=== PATIENT | male | born 1975 | race Caucasian/White ===

== ENCOUNTER → 2016-06-18 | Outpatient (CLI) | payer BC | LOC: MW.CHPM 10:18 | PROVIDERS: ATTEND Anesthesiology | DX: Z51.81 Encounter for therapeutic drug level monitoring (principal); Z79.891 Long term (current) use of opiate analgesic | CPT/HCPCS: 80305 ==

== ENCOUNTER → 2016-07-16 | Outpatient (CLI) | payer BC | END | disposition home or self-care (01) | LOC: MW.CHPM 15:07 | PROVIDERS: ATTEND Anesthesiology | DX: Z51.81 Encounter for therapeutic drug level monitoring (principal); Z79.891 Long term (current) use of opiate analgesic | CPT/HCPCS: 80305 ==

== ENCOUNTER → 2016-09-04 | Outpatient (CLI) | payer BC | LOC: MW.CHPM 10:20 | PROVIDERS: ATTEND Anesthesiology | DX: Z51.81 Encounter for therapeutic drug level monitoring (principal); Z79.891 Long term (current) use of opiate analgesic | CPT/HCPCS: 80305 ==

== ENCOUNTER 2017-01-31 12:05 | Day surgery (SDC) | payer BC ==
[~2017-01-31 12:05] MED LIST: Betamethasone Acetate/Betamethasone Sod Phosphate 30 MG/5 ML MDV ONE; Iopamidol 408 MG/ML 50 ML SDV ONE; Lidocaine 2% 5 ML SDV ONE; Ropivacaine 0.5% 5 MG/ML 30 ML SDV ONE
--- NOTE | 2017-01-31 15:50 | OR ---
SURGEON: Vita Gonzales D.O. DATE OF PROCEDURE: 01/31/2017 OR STAFF PRESENT: 1. Jose Antonio Alexander RN. 2. Chapis Hawley RN. 3. Elizabeth Gross. RT. WOUND CLASSIFICATION: I. PREOPERATIVE DIAGNOSIS: Right sacroiliac joint arthropathy. POSTOPERATIVE DIAGNOSIS: Right sacroiliac joint arthropathy. PROCEDURES PERFORMED: 1. Right sacroiliac joint injection. 2. Fluoroscopic guidance for needle placement. 3. Local with oral Valium for sedation. SCREENING QUESTIONS: The patient answered "No" to all the followin. Are you allergic to iodine, Betadine or latex? 2. Do you have a bleeding disorder? 3. Do you have any joint replacements, heart valve replacements or a pacemaker? 4. Are you on any anti-inflammatories or blood thinners? 5. Do you have any current local or systemic infections? MEDICAL NECESSITY: This is a patient with a history of severe chronic low back pain and sacroiliac joint irritation with pain over the sacral sulcus and the buttocks region who comes in for the above diagnostic and therapeutic procedure. Please see medical necessity note attached. This procedure is being done in accordance with guidelines as written by the [employer] (SERAFIN). DESCRIPTION OF PROCEDURE: The patient had the procedure thoroughly explained including all possible risks, benefits and alternatives. Consent was signed in my clinic indicating understanding and willingness to proceed. The patient presented to the outpatient [facility] and was escorted to the dressing room to disrobe and change into a hospital gown. Preoperative vital signs were taken and stable. The patient reported that Valium was taken prior to the procedure. The patient was brought to the procedure room and placed in the prone position on the procedure room table. A pillow was placed under the hips in order to flatten the lumbar lordosis. The back was prepped with ChloraPrep and sterilely draped. All personnel in the operating room were dressed in appropriate attire including surgical scrubs, head and shoe covers. This was to ensure sterility while in the treatment room. During the time fluoroscopy was in use all personnel in the operating room wore lead forte with thyroid collars. Sterile technique was used during the procedure. The patient was awake and conversant throughout the procedure. The fluoroscope was positioned to provide an oblique view of the sacroiliac joint. There was no evidence of infection at the site of needle insertion. The skin was anesthetized with 2% Lidocaine with a sterile 27-gauge 1.5 inch needle. Then under fluoroscopy a 22-gauge 3.5 inch spinal needle was placed within the sacroiliac joint in the lower one-third of the joint. IsoVue-200 contrast dye was injected under live fluoroscopy and no intravascular flow pattern was observed. After negative aspiration of heme, the following solution was injected: 0.5% Ropivacaine, Celestone and 2% Lidocaine. The patient tolerated the procedure well and vital signs were stable during and after the procedure. The staff escorted the patient to the recovery area and the patient was released to home in stable condition after a brief stay in the recovery room monitored by the nurse. The patient was given both oral and written discharge and follow up instructions. Recommended follow up in two weeks. The patient is able to contact the office if there are any additional problems or questions in the meantime. The patient was given discharge instruction and verbalizes understanding including understanding of those signs and symptoms that would require emergency care. PREOPERATIVE PAIN: 9/10. POSTOPERATIVE PAIN: 0/10. PLAN: Followup in the Pain Clinic in 1 month. SAEED / KANNAN /[id number]
== END 2017-01-31 14:05 | disposition home or self-care (01) ==
LOC: MW.SDS 12:05
PROVIDERS: ATTEND Anesthesiology
DX: G89.4 Chronic pain syndrome (principal); M47.898 Other spondylosis, sacral and sacrococcygeal region; F41.9 Anxiety disorder, unspecified; M19.90 Unspecified osteoarthritis, unspecified site; Q76.2 Congenital spondylolisthesis; F32.9 Major depressive disorder, single episode, unspecified; K21.9 Gastro-esophageal reflux disease without esophagitis; M10.9 Gout, unspecified; I10 Essential (primary) hypertension; E78.00 Pure hypercholesterolemia, unspecified; G60.9 Hereditary and idiopathic neuropathy, unspecified; M51.16 Intervertebral disc disorders with radiculopathy, lumbar region; M48.061 Spinal stenosis, lumbar region without neurogenic claudication; G62.9 Polyneuropathy, unspecified; M06.9 Rheumatoid arthritis, unspecified; G47.30 Sleep apnea, unspecified; Z79.891 Long term (current) use of opiate analgesic; Z79.899 Other long term (current) drug therapy; Z88.5 Allergy status to narcotic agent; Z91.013 Allergy to seafood; Z91.040 Latex allergy status; Z98.890 Other specified postprocedural states
CPT/HCPCS: 27096; G0260; J0702; J2795; Q9966; 62323

== ENCOUNTER 2017-02-07 08:11 | Emergency (ER) | payer BC ==
[2017-02-07] MEDS ORDERED: Aspirin 81 MG Tab.Chew PO ONE (08:12)
[2017-02-07] MEDS ORDERED: Sodium Chloride 0.9% 1,000 ML IV ONE (08:12)
[2017-02-07] MEDS ORDERED: Pantoprazole 40 MG Vial IVPUSH ONE (08:12)
--- NOTE | 2017-02-07 08:14 | EDM.PDOC ---
ED HPI GENERAL MEDICAL PROBLEM - General Chief Complaint: Abdominal Pain Stated Complaint: CHEST PAIN Time Seen by Provider: 02/07/17 08:14 Source of Information: Reports: Patient - History of Present Illness INITIAL COMMENTS - FREE TEXT/NARRATIVE: HISTORY AND PHYSICAL: History of present illness: [Patient with GERD hypertension dyslipidemia presents with burning epigastric pain that began this morning he generally takes omeprazole for this there is no actual chest pain or radiation and arm neck or jaw there is no association with shortness of breath or diaphoresis He was seen by his primary care yesterday and diagnosed with a sinus infection he does have right-sided sinus tenderness greater than left and congestion mild intermittent cough secondary to postnasal drip He is on amoxicillin for above this was started yesterday No fever nausea vomiting chills sweats no shortness of breath headache dizziness or palpitation no bowel or urine symptoms ] Review of systems: As per history of present illness and below otherwise all systems reviewed and negative. Past medical history: As per history of present illness and as reviewed below otherwise noncontributory. Surgical history: As per history of present illness and as reviewed below otherwise noncontributory. Social history: No reported history of drug or alcohol abuse. Family history: As per history of present illness and as reviewed below otherwise noncontributory. Physical exam: HEENT: Atraumatic, normocephalic, pupils reactive, negative for conjunctival pallor or scleral icterus, mucous membranes moist, throat clear, neck supple, nontender, trachea midline. Lungs: Clear to auscultation, breath sounds equal bilaterally, chest nontender. Heart: S1S2, regular, negative for clicks, rubs, or JVD. Abdomen: Soft, nondistended, nontender. Negative for masses or hepatosplenomegaly. Negative for costovertebral tenderness. Pelvis: Stable nontender. Genitourinary: Deferred. Rectal: Deferred. Extremities: Atraumatic, negative for cords or calf pain. Neurovascular unremarkable. Neuro: Awake, alert, oriented. Cranial nerves II through XII unremarkable. Cerebellum unremarkable. Motor and sensory unremarkable throughout. Exam nonfocal. Diagnostics: [Lab as below EKG Chest 1 view ] Therapeutics: Aspirin 324 mg chewable Protonix ADEM L milligrams IV GI cocktail Symptoms resolved with above treatment []Continue amoxicillin as directed [id number] symptomatic therapies as discussed Continue omeprazole 40 mg daily Rolaids may benefit Zantac 150 mg by mouth twice a day for 2 weeks in addition Avoid triggers of acid reflux Impression: []gerd improved/resolved posttreatment above Chronic history of baseline Definitive disposition and diagnosis as appropriate pending reevaluation and review of above. - Related Data Allergies Allergy/AdvReac Type Severity Reaction Status Date / Time hydrocodone Allergy Shortness Verified 02/07/17 08:16 of Breath latex Allergy Cannot Verified 02/07/17 08:16 Remember bacteria in fish Allergy Cannot Uncoded 02/07/17 08:16 Remember Home Meds: Home Meds Celecoxib [CeleBREX] 200 mg PO DAILY 02/16/16 [History] Diclofenac Sodium [Voltaren 1% Gel] 1 applic TOP ASDIRECTED PRN 02/16/16 [ History] Folic Acid 1 mg PO DAILY 02/16/16 [History] Losartan Potassium [Cozaar] 100 mg PO DAILY 02/16/16 [History] Methocarbamol 750 mg PO TID 02/16/16 [History] Methotrexate 10 tab PO WEEKLY 02/16/16 [History] Nortriptyline HCl [Pamelor] 1 tab PO BEDTIME 02/16/16 [History] Omeprazole Magnesium [Prilosec Otc] 20 mg PO DAILY 02/16/16 [History] Pregabalin [Lyrica] 150 mg PO BID 02/16/16 [History] atorvaSTATin [Lipitor] 20 mg PO DAILY 02/16/16 [History] DULoxetine [Cymbalta] 1 cap PO BID 02/17/16 [History] Febuxostat [Uloric] ASDIRECTED 02/17/16 [History] Fluticasone Propionate [Flonase Allergy Relief] 1 spray NASBOTH ASDIRECTED 02/16 [History] Ketamine Soln ASDIRECTED 02/17/16 [History] Lidocaine/Prilocaine [Lidocaine-Prilocaine Cream] 1 dose TOP TID 02/17/16 [ History] Olopatadine HCl [Pataday] ASDIRECTED 02/17/16 [History] Verapamil HCl [Calan Sr] 1 tab PO DAILY 02/17/16 [History] oxyCODONE HCl/Acetaminophen [Percocet 7.5-325 mg Tablet] 1 tab PO ASDIRECTED [History] Past Medical History HEENT History: Reports: Allergic Rhinitis Other HEENT History: wears glasses Cardiovascular History: Reports: High Cholesterol, Hypertension Respiratory History: Reports: Sleep Apnea Other Respiratory History: uses CPAP Gastrointestinal History: Reports: GERD Genitourinary History: Reports: None Musculoskeletal History: Reports: Back Pain, Chronic, Gout, RA, Other (See Below ) Other Musculoskeletal History: spinal stenosis, congenital spondylosis Neurological History: Reports: Neuropathy, Peripheral, Other (See Below) Other Neuro History: degenerative disc disease Psychiatric History: Reports: None Endocrine/Metabolic History: Reports: Obesity/BMI 30+ Hematologic History: Reports: None Immunologic History: Reports: None Oncologic (Cancer) History: Reports: None Dermatologic History: Reports: None - Past Surgical History Musculoskeletal Surgical History: Reports: Arthroscopic Knee, Shoulder Surgery, Other (See Below) Social & Family History - Tobacco Use Smoking Status *Q: Never Smoker - Recreational Drug Use Recreational Drug Use: No Drug Use in Last 12 Months: No ED ROS GENERAL - Review of Systems Review Of Systems: ROS reveals no pertinent complaints other than HPI. ED EXAM, GENERAL - Physical Exam Exam: See Below Course - Vital Signs Last Recorded V/S: Last Vital Signs Temp 36.4 C 02/07/17 08:17 Pulse 78 02/07/17 08:17 Resp 24 H 02/07/17 08:17 BP 197/112 H 02/07/17 08:17 Pulse Ox 97 02/07/17 08:17 - Orders/Labs/Meds Orders: Active Orders 24 hr Category Date Time Status EKG Documentation Completion [RC] STAT Care 02/07/17 08:12 Active UA W/MICROSCOPIC [URIN] Stat Lab 02/07/17 08:12 Uncollected Labs: Laboratory Tests 02/07/17 02/07/17 Range/Units 08:16 08:16 WBC 8.55 (4.0-11.0) K/uL RBC 4.68 (4.50-5.90) M/uL Hgb 13.5 (13.0-17.0) g/dL Hct 40.6 (38.0-50.0) % MCV 86.8 (80.0-98.0) fL MCH 28.8 (27.0-32.0) pg MCHC 33.3 (31.0-37.0) g/dL RDW Std Deviation 45.1 (28.0-62.0) fl RDW Coeff of Lm 15 (11.0-15.0) % Plt Count 258 (150-400) K/uL MPV 8.80 (7.40-12.00) fL Neut % (Auto) 54.3 (48.0-80.0) % Lymph % (Auto) 30.9 (16.0-40.0) % Ripley % (Auto) 11.0 (0.0-15.0) % Eos % (Auto) 3.3 (0.0-7.0) % Baso % (Auto) 0.5 (0.0-1.5) % Neut # (Auto) 4.7 (1.4-5.7) K/uL Lymph # (Auto) 2.6 H (0.6-2.4) K/uL Ripley # (Auto) 0.9 H (0.0-0.8) K/uL Eos # (Auto) 0.3 (0.0-0.7) K/uL Baso # (Auto) 0.0 (0.0-0.1) K/uL Nucleated RBC % 0.0 /100WBC Nucleated RBCs # 0 K/uL Sodium 140 (136-146) mmol/L Potassium 3.7 (3.5-5.1) mmol/L Chloride 105 (98-110) mmol/L Carbon Dioxide 22 (21-31) mmol/L BUN 17 (6.0-23.0) mg/dL Creatinine 0.9 (0.6-1.5) mg/dL Est Cr Clr Drug Dosing 116.16 mL/min Estimated GFR (MDRD) > 60.0 ml/min Glucose 117 H (60-110) mg/dL Calcium 9.4 (8.8-10.8) mg/dL Total Bilirubin 0.3 (0.1-1.5) mg/dL AST 18 (5-40) IU/L ALT 33 (8-54) IU/L Alkaline Phosphatase 64 (40-150) Creatine Kinase 67 (9-236) IU/L CK-MB (CK-2) 0.5 (0-6.6) ng/ml Troponin I < 0.10 (0.0-0.29) NG/ML Total Protein 7.2 (6.0-8.0) g/dL Albumin 4.4 (3.5-5.0) g/dL Globulin 2.8 (2.0-3.5) g/dL Albumin/Globulin Ratio 1.6 (1.3-2.8) Amylase 34 (10-90) U/L Lipase 23 (7-80) U/L Meds: Medications Discontinued Medications Generic Name Dose Route Start Last Admin Trade Name [place] PRN Reason Stop Dose Admin Aspirin 324 mg 02/07/17 08:12 02/07/17 08:22 Aspirin PO 02/07/17 08:13 324 mg ONETIME ONE Administration Al Hydroxide/Mg Hydroxide 15 0 ml 02/07/17 08:21 02/07/17 08:33 ml/ Metoclopramide HCl 5 mg/ PO 02/07/17 08:22 20 each Lidocaine HCl 5 ml ONETIME ONE Administration Sodium Chloride 1,000 mls @ 999 mls/hr 02/07/17 08:12 02/07/17 08:25 Normal Saline IV 02/07/17 09:12 999 mls/hr STAT ONE Administration Pantoprazole Sodium 80 mg 02/07/17 08:12 02/07/17 08:25 Protonix Iv IVPUSH 02/07/17 08:13 80 mg .BOLUS ONE Administration Departure - Departure Time of Disposition: 09:14 Disposition: Home, Self-Care 01 Condition: Good Clinical Impression: GERD (gastroesophageal reflux disease) - Discharge Information Forms: ED Department Discharge Additional Instructions: Continue with omeprazole 40 mg daily Rolaids as needed may benefit Zantac 150 milligrams by mouth twice a day for 2 weeks is recommended Avoid triggers of acid reflux as discussed Follow-up with primary care in 2 weeks sooner as needed The following information is given to patients seen in the emergency department who are being discharged to home. This information is to outline your options for follow-up care. We provide all patients seen in our emergency department with a follow-up referral. The need for follow-up, as well as the timing and circumstances, are variable depending upon the specifics of your emergency department visit. If you don't have a primary care physician on staff, we will provide you with a referral. We always advise you to contact your personal physician following an emergency department visit to inform them of the circumstance of the visit and for follow-up with them and/or the need for any referrals to a consulting specialist. The emergency department will also refer you to a specialist when appropriate. This referral assures that you have the opportunity for follow-up care with a specialist. All of these measure are taken in an effort to provide you with optimal care, which includes your follow-up. Under all circumstances we always encourage you to contact your private physician who remains a resource for coordinating your care. When calling for follow-up care, please make the office aware that this follow-up is from your recent emergency room visit. If for any reason you are refused follow-up, please contact the [facility] emergency department at and asked to speak to the emergency department charge nurse. - My Orders Last 24 Hours: My Active Orders 02/07/17 08:12 EKG Documentation Completion [RC] STAT UA W/MICROSCOPIC [URIN] Stat - Assessment/Plan Last 24 Hours: My Active Orders 02/07/17 08:12 EKG Documentation Completion [RC] STAT UA W/MICROSCOPIC [URIN] Stat
[2017-02-07] MEDS ORDERED: Alum Hydrox/Mag Hydrox/Simeth 15 ML, Metoclopramide 5 MG, Lidocaine 2% 5 ML PO ONE ×3 (08:21)
--- NOTE | 2017-02-07 08:49 | CR ---
EXAMINATION: Portable chest radiograph. HISTORY: Pain. FINDINGS: Mild motion artifact is noted. The trachea is midline. The cardiomediastinal silhouette is within nor mal limits. No pulmonary infiltrates, effusions or pneumothorax. Osseous structures appear unremarkable. IMPRESSION: No acute cardiopulmonary process.
[2017-02-07 08:53] LABS: CHLORIDE,CL 105 mmol/L (98-110); SODIUM,NA 140 mmol/L (136-146)
[2017-02-07 09:36] VITALS: BP 178/92
== END 2017-02-07 09:32 | disposition home or self-care (01) ==
LOC: MW.ED 08:11
DX: K21.9 Gastro-esophageal reflux disease without esophagitis (principal); E78.00 Pure hypercholesterolemia, unspecified; I10 Essential (primary) hypertension; E66.9 Obesity, unspecified; Z88.5 Allergy status to narcotic agent; Z91.040 Latex allergy status; Z79.899 Other long term (current) drug therapy; Z68.32 Body mass index [BMI] 32.0-32.9, adult
CPT/HCPCS: 36415; 71010; 80053; 81001; 82150; 82550; 82553; 83690; 84484; 85025; 93005; 96361; 96374; 99284; A9270; C9113; J7040; 99283

== ENCOUNTER 2021-06-06 09:00 | Day surgery (SDC) | payer BC ==
[2021-06-06] MEDS ORDERED: Propofol 200 MG/20 ML SDV ONE (10:14)
[2021-06-06] MEDS ORDERED: fentaNYL 100 MCG/2 ML SDV ONE (10:36)
[2021-06-06] MEDS ORDERED: Ketamine 500 mg/10 ML MDV ONE (10:38)
[2021-06-06] MEDS ORDERED: Lactated Ringers 1,000 ML IV SCH (10:45)
[2021-06-06 12:08] VITALS: BP 152/89; PULSE 64
== END 2021-06-06 11:57 | disposition home or self-care (01) ==
LOC: MW.SDS 09:00
PROVIDERS: ATTEND Surgery
DX: R19.4 Change in bowel habit (principal); R63.4 Abnormal weight loss; R14.0 Abdominal distension (gaseous); F41.9 Anxiety disorder, unspecified; K21.9 Gastro-esophageal reflux disease without esophagitis; M10.9 Gout, unspecified; I10 Essential (primary) hypertension; E78.00 Pure hypercholesterolemia, unspecified; G60.9 Hereditary and idiopathic neuropathy, unspecified; G62.9 Polyneuropathy, unspecified; G47.30 Sleep apnea, unspecified; M06.9 Rheumatoid arthritis, unspecified; E66.9 Obesity, unspecified; Z88.5 Allergy status to narcotic agent; Z91.040 Latex allergy status; Z91.013 Allergy to seafood; Z98.890 Other specified postprocedural states
CPT/HCPCS: 00811; J2704; J3010; J3490; J7120

== ENCOUNTER 2024-01-30 22:07 | Emergency (ER) | payer BC ==
[2024-01-31 00:57] LABS: BASOPHILS ABSOLUTE AUTO 0.06 K/uL (0.00-0.20); BASOPHILS PERCENT AUTO 0.5 % (0.0-1.0); EOSINOPHILS ABSOLUTE AUTO 0.15 K/uL (0.00-0.45); EOSINOPHILS PERCENT AUTO 1.3 % (0.0-6.0); HEMATOCRIT 40.7 % (42.0-52.0); HEMOGLOBIN 13.4 g/dL (14.0-18.0); IMMATURE GRAN ABSOLUTE AUTO 0.05 K/uL (0.00-0.05); IMMATURE GRAN PERCENT AUTO 0.4 % (0.0-0.4); LYMPHOCYTES PERCENT AUTO 9.4 % (24.0-44.0); MEAN CORPUSCULAR HEMOGLOBIN 27.2 pg (28.0-32.0); MEAN CORPUSCULAR HGB CONC 32.9 g/dL (32.0-36.0); MEAN CORPUSCULAR VOLUME 82.7 fL (83.0-99.0); MEAN PLATELET VOLUME 8.9 fL (9.4-12.4); MONOCYTES ABSOLUTE AUTO 0.84 K/uL (0.00-0.80); MONOCYTES PERCENT AUTO 7.2 % (0.0-8.0); NEUTROPHILS ABSOLUTE AUTO 9.49 K/uL (1.80-7.70); NEUTROPHILS PERCENT AUTO 81.2 % (41.0-71.0); PLATELET COUNT,PLT 247 K/uL (150-400); RED BLOOD CELL COUNT 4.92 M/uL (4.52-5.90); WHITE BLOOD CELL COUNT,WBC 11.69 K/uL (3.9-11.3)
[2024-01-31 01:23] LABS: BLOOD UREA NITROGEN,BUN 15 mg/dL (7.0-18.0); CALCIUM 9.4 mg/dL (8.5-10.1); CARBON DIOXIDE,CO2 32.4 mmol/L (21.0-32.0); CHLORIDE,CL 103 mmol/L (98-107); CREATININE 1.1 mg/dL (0.8-1.3); GLUCOSE RANDOM 100 mg/dL (74-106); POTASSIUM,K 3.7 mmol/L (3.5-5.1); SODIUM,NA 143 mmol/L (136-148)
[2024-01-31 01:25] LABS: ESTIMATED GFR 82 mL/min (>60)
[2024-01-31 03:11] VITALS: BP 143/75; PULSE 76
== END 2024-01-31 03:11 | disposition home or self-care (01) ==
LOC: MW.ED 22:07
DX: R61 Generalized hyperhidrosis (principal); I10 Essential (primary) hypertension; Z91.048 Other nonmedicinal substance allergy status; Z91.040 Latex allergy status; Z88.5 Allergy status to narcotic agent; Z91.013 Allergy to seafood
CPT/HCPCS: 36415; 71046; 71046-26; 80048; 84484; 85025; 93005; 99285